=== PATIENT | female | born 2000 | race Asian ===

== ENCOUNTER 2022-12-24 13:15 | Emergency (ER) | payer OTHER ==
[~2022-12-24] VITALS: Ht 167.6 cm; Wt 145.2 kg
[2022-12-24 13:29] VITALS: TEMP 98.1
[2022-12-24 13:52] LABS: PLATELET COUNT 428 K/uL (152-353)
[2022-12-24 13:58] LABS: POTASSIUM 4.2 mmol/L (3.6-5.2)
[2022-12-24 15:29] VITALS: BP 133/78
== END 2022-12-24 15:30 | disposition home or self-care (01) ==
LOC: ED 13:15
PROVIDERS: Family Medicine
DX: K29.70 Gastritis, unspecified, without bleeding (principal); B34.9 Viral infection, unspecified
CPT/HCPCS: 80053; 81000; 81025; 83690; 85027; 99284; Q9963